=== PATIENT | female | born 1985 | race Caucasian/White ===

== ENCOUNTER 2019-02-07 16:56 | Emergency (ER) | payer OTHER, MEDICAID, SELFPAY ==
[2019-02-07 17:19] VITALS: BP 138/94; PULSE 76; RESP 16; TEMP 36.6; O2SAT 99; BMI 40.7
--- NOTE | 2019-02-07 18:14 | PC.NURSE ---
treated with acyclovir, doxycycline, prednison, sxs for one week, still has swelling right eye and right cheeks, burning sensation is better,, pt had eye and dental evaluation. pt still has headache, right side of face swelling.
--- NOTE | 2019-02-07 18:24 | ED.HA ---
HPI - Headache <Rachana Dorantes PA-C - Last Filed: 02/07/19 21:10> General Chief Complaint: Headache Stated Complaint: Burning of face Time Seen by Provider: 02/07/19 17:56 Source: patient Mode of arrival: ambulatory Limitations: no limitations History of Present Illness HPI Narrative: This 33-year-old female comes to ED secondary to persistent right eye pain, burning, tingling, skin discomfort, intermittent tearing that affects her vision She states that she has had this for 9 days now, seen initially at another local ED 2 days after it started, and states she felt like her face was ?on fire?. At the ED they thought systems were consistent with early onset of shingles prior to appearance of rash. She was treated with antiviral, steroid, pain medications. Rash did not develop and she was seen for follow-up at the ED 5 days ago. Hunter to be perhaps consistent with a typical migraine as she does have a history of migraine. She had lab work and CT a without acute finding. In the interim she has also seen Ophthalmology who did not find evidence of viral infection, thought dry eye and mild inflammation perhaps from rubbing her eye. TobraDex was started. She states that she feels like that side of her face has been swollen at times. This waxes and wanes a little bit. She states that she thinks eye drops have helped the burning pain, still gets intermittent sharp, stabbing pain making it difficult for her to sleep. Not acutely worse today but continues to have discomfort. She denies any earache, sore throat, jaw pain. She denies any recent upper respiratory symptoms, fever, chills, sweats. She has not had any no new exposures or medications. She states that she has not had any other new symptoms aside from feeling like her energy is lower. She states her migraines have gradually been increasing in frequency but are not similar to this stabbing and tingling type of pain. She states she has had similar episodes of burning/stabbing pain and swelling in her face about 4 times over the last year and a half but tend to be bilateral and quit when treated for allergy Related Data Previous Rx's Medication Instructions Recorded gabapentin 300 mg PO Q8H #20 cap 02/07/19 Allergies Allergy/AdvReac Type Severity Reaction Status Date / Time diphenhydramine Allergy Hives Verified 02/07/19 17:24 [From Jess] Review of Systems <Rachana Dorantes PA-C - Last Filed: 02/07/19 21:10> Review of Systems ROS Unobtainable: All systems reviewed & are unremarkable except as noted in HPI and below PFSH <Rachana Dorantes PA-C - Last Filed: 02/07/19 21:10> Medical History (Updated 02/07/19 @ 21:08 by Rachana Dorantes PA-C) Migraine headache (Chronic) Surgical History (Updated 02/07/19 @ 21:08 by Rachana Dorantes PA-C) Status post bilateral salpingectomy (Resolved) Social History Smoking Status: Former smoker Social History Smoking Status: Former smoker Exam <Rachana Dorantes PA-C - Last Filed: 02/07/19 21:10> Narrative Exam Narrative: GENERAL APPEARANCE: Patient sitting comfortably, in no distress. HEENT: No facial edema. PERRL, EOMI, no tearing or drainage, minimal right inferior conjunctival erythema, normal TMs and oropharynx, no sinus TTP NECK: Supple LUNGS: Clear to auscultation bilaterally. HEART: Rate and rhythm regular without murmur, normal S1 and S2, no S3 or S4. NEUROLOGIC: Alert and oriented, normal speech, gait and coordination. MUSCULOSKELETAL: Full Csp AROM DERMATOLOGIC: There is some mild infra orbital erythema on the right, skin is slightly tender, no exanthem Initial Vital Signs Initial Vital Signs: Vital Signs Temperature 97.8 F 02/07/19 17:19 Pulse Rate 76 02/07/19 17:19 Respiratory Rate 16 02/07/19 17:19 Blood Pressure 138/94 H 02/07/19 17:19 Pulse Oximetry 99 02/07/19 17:19 <Tre Manjarrez DO - Last Filed: 02/08/19 00:50> Initial Vital Signs Initial Vital Signs: Vital Signs Temperature 97.8 F 02/07/19 17:19 Pulse Rate 76 02/07/19 17:19 Respiratory Rate 16 02/07/19 17:19 Blood Pressure 138/94 H 02/07/19 17:19 Pulse Oximetry 99 02/07/19 17:19 Course <Rachana Dorantes PA-C - Last Filed: 02/07/19 21:10> Additional Information: Some of patient's symptoms have improved. She has not had acutely worsening symptoms, but continues to have difficulty sleeping, episodic sharp pain. Notes were obtained from her previous workup which has been thorough including lab work and CT angiogram without acute findings. She describes neuropathic type pain, which could be a variant of trigeminal neuralgia or something similar, also SUNCT syndrome or a headache variant. This is not like her typical migraine. After discussion decided to try gabapentin over the weekend to see if this is helpful for pain and sleep. She will not be driving. She already has follow-up with her new PCP scheduled on Sunday and will discuss results of gabapentin trial as well as further medication, testing and referral at that time. She agreed to return if any acutely worsening symptoms in the interim Vital Signs - 8 hr 02/07/19 17:19 02/07/19 19:55 Temperature 97.8 F Pulse Rate 76 76 Respiratory Rate 16 15 Blood Pressure 138/94 H Blood Pressure [Left Arm] 130/87 Pulse Oximetry 99 98 <Tre Manjarrez DO - Last Filed: 02/08/19 00:50> Vital Signs - 8 hr 02/07/19 17:19 02/07/19 19:55 Temperature 97.8 F Pulse Rate 76 76 Respiratory Rate 16 15 Blood Pressure 138/94 H Blood Pressure [Left Arm] 130/87 Pulse Oximetry 99 98 Discharge Plan Departure Patient Disposition: Home Clinical Impression: Neuralgic facial pain Discharge Date/Time: 02/07/19 20:25 Interventions: ED Discharge Assessment Last Done: 02/07/19 20:25 Instructions: Neuropathic Pain Activity Restrictions/Additional Instructions: As we talked about today, I am not sure exactly what the source of your pain is. You have had a thorough evaluation including the scan that you had done. It was appropriate to try the medications you have been taking and it is also reassuring that you have seen the eye doctor. I think that your pain is nerve generated, perhaps by parts of what is called the trigeminal nerve that interface your face. I suspect this due to the type of lancinating, tingling and burning pain that you are describing. You could also have a headache that is different from your migraine as these can also cause tearing of the eye. One of these is called SUNCT. I have given you a prescription for medicine for nerve pain to try over the weekend to see if this is helpful and since you are not sleeping well. Please start with 1 capsule every 8 hours and you can increase to 2 capsules (600 mg) at bedtime if needed, but remember this can make you sleepy and not to drive or do other activities were you need to be alert. This may be helpful to your primary care provider on Sunday to know whether it has been helpful. As we talked about, you will likely need further testing with more imaging studies and a neurology consultation. Please return to the ED as we discussed if you have any acutely worsening symptoms over the weekend Prescriptions: New gabapentin 300 mg capsule 300 mg PO Q8H Qty: 20 RF: 0 Referrals: [facility] [Other] <Tre Manjarrez DO - Last Filed: 02/08/19 00:50> Cosign ED Attending Maia Attestation: I was immediately available in the department for consultation. Documentation has been reviewed. I agree with assessment and plan.
[2019-02-07 19:55] VITALS: BP 130/87; PULSE 76; RESP 15; O2SAT 98
== END 2019-02-07 20:25 | disposition home or self-care (01) ==
PROVIDERS: Emergency Provider Internal Medicine
DX: G51.8 Other disorders of facial nerve (principal)
CPT/HCPCS: 99283